=== PATIENT | female | born 1955 | race African-American/Black ===

== ENCOUNTER 2024-11-23 22:47 | Inpatient (IN) | payer MEDICAID ==
[~2024-11-23] VITALS: Ht 165.1 cm; Wt 56.9 kg
[2024-11-24] VITALS (11 sets, daily range): BP systolic 97–134; BP diastolic 47–68; PULSE 41–63; RESP 10–20; TEMP 36.5–36.6404; O2SAT 91–100
[2024-11-24 00:51] LABS: BASOPHILS % 0.4 % (0.0-2.0); EOSINOPHILS % 0.3 % (0.0-5.0); HEMATOCRIT. 25.5 % (36.0-48.0); HEMOGLOBIN. 8.2 g/dL (12.0-16.0); LYMPHOCYTES % 13.5 % (20.0-50.0); MEAN PLATELET VOLUME 10.5 fl (7.4-10.4); MONOCYTES % 4.1 % (2.0-8.0); NEUTROPHILS % 81.7 % (40.0-76.0); PLATELET 231 x1000/uL (130-400); RED BLOOD CELL COUNT 2.64 mill/uL (4.2-5.4); RED CELL DISTRIBUTION WIDTH 18.8 % (11.6-14.6)
[2024-11-24 00:59] LABS: INR 1.0
[2024-11-24 01:01] LABS: CREATININE 0.8 mg/dL (0.6-1.0); ETHANOL BLOOD < 10 mg/dL (<10); TROPONIN I HIGH SENSITIVITY 6 ng/L (3.0-34); UREA NITROGEN BLOOD 65 mg/dL (9-23)
[2024-11-24 01:02] LABS: ASPARTATE AMINOTRANSFERASE 115 IU/L (<34); BILIRUBIN DIRECT 0.1 mg/dL (<=3.0)
[2024-11-24 01:03] LABS: BILIRUBIN TOTAL 0.3 mg/dL (0.1-1.0); PROTEIN TOTAL 4.3 g/dL (6.0-8.3)
[2024-11-24] MEDS: PIPERACILLIN/TAZO 3.375G/50ML 50 ML IV SCH (04:24)
[2024-11-24] MEDS: SODIUM CHLORIDE 0.9% 1,000 ML IV SCH (04:25)
[2024-11-24] MEDS: SODIUM CHLORIDE 0.9% 500 ML IV ONE (08:15)
[2024-11-24] MEDS ORDERED: MAGNESIUM/ALUMINUM HYDROXIDE/SIMETHICONE 30ML UDC PO PRN (09:30)
[2024-11-24] MEDS ORDERED: NALOXONE HCL 0.4MG/ML VIAL IV PRN (09:30)
[2024-11-24] MEDS ORDERED: ZOLPIDEM TARTRATE 5MG TABLET PO PRN (09:30)
[2024-11-24] MEDS ORDERED: HYDROCODONE/ACETAMINOPHEN 5/325MG TABLET PO PRN (09:30)
[2024-11-24] MEDS ORDERED: CLONIDINE 0.1MG TABLET PO PRN (09:30)
[2024-11-24] MEDS ORDERED: MORPHINE SULFATE 2 MG/ML INJ (NOT FOR IM USE) IV PRN (09:30)
[2024-11-24] MEDS ORDERED: ONDANSETRON HCL 4MG/2ML INJ IV PRN (09:30)
[2024-11-24] MEDS: DEXT 5%/0.45% NACL 1000ML 1,000 ML IV SCH (10:05)
[2024-11-24] MEDS: ENOXAPARIN 40MG/0.4ML SYR SUBCUT SCH (10:05)
[2024-11-24 12:37] LABS: BASOPHILS % 0.3 % (0.0-2.0); EOSINOPHILS % 0.2 % (0.0-5.0); HEMATOCRIT. 27.0 % (36.0-48.0); HEMOGLOBIN. 8.5 g/dL (12.0-16.0); LYMPHOCYTES % 9.2 % (20.0-50.0); MEAN PLATELET VOLUME 10.5 fl (7.4-10.4); MONOCYTES % 4.6 % (2.0-8.0); NEUTROPHILS % 85.7 % (40.0-76.0); PLATELET 181 x1000/uL (130-400); RED BLOOD CELL COUNT 2.74 mill/uL (4.2-5.4); RED CELL DISTRIBUTION WIDTH 18.9 % (11.6-14.6)
[2024-11-24 12:56] LABS: CREATININE 0.7 mg/dL (0.6-1.0)
[2024-11-24 12:57] LABS: UREA NITROGEN BLOOD 57 mg/dL (9-23)
[2024-11-24 12:58] LABS: ASPARTATE AMINOTRANSFERASE 74 IU/L (<34)
[2024-11-24 12:59] LABS: BILIRUBIN TOTAL 0.5 mg/dL (0.1-1.0); PROTEIN TOTAL 4.0 g/dL (6.0-8.3)
[2024-11-24 14:46] LABS: TROPONIN I HIGH SENSITIVITY 5 ng/L (3.0-34)
[2024-11-24] MEDS: POTASSIUM CHLORIDE 20MEQ TABLET SR PO NR (15:10)
[2024-11-24 16:18] LABS: GLUCOSE URINE NEGATIVE (NEGATIVE); KETONES URINE NEGATIVE (NEGATIVE); LEUKOCYTE ESTERASE URINE 1+ (NEGATIVE); NITRITE URINE NEGATIVE (NEGATIVE); OCCULT BLOOD URINE NEGATIVE (NEGATIVE); PH URINE 5.0 (4.5-8.0); PROTEIN URINE TRACE (NEGATIVE); SPECIFIC GRAVITY URINE 1.017 (1.005-1.030); UROBILINOGEN URINE 0.2 E.U./dL (0.2-1.0)
[2024-11-24 16:43] LABS: CLARITY URINE HAZY (CLEAR); COLOR URINE YELLOW (YELLOW)
[2024-11-24 16:44] LABS: BACTERIA URINE TRACE; RBC URINE NONE SEEN /hpf (0-2); SQUAMOUS EPITHELIAL CELL URINE RARE /lpf (RARE/1+); YEAST URINE 2+
[2024-11-24 16:45] LABS: MUCUS URINE TRACE /lpf (< = 2+)
[2024-11-24 17:11] LABS: *AMPHETAMINES SCREEN URINE NEGATIVE (NEGATIVE); *BARBITURATES SCREEN URINE NEGATIVE (NEGATIVE); *BENZODIAZEPINES SCREEN URINE NEGATIVE (NEGATIVE); *COCAINE SCREEN URINE NEGATIVE (NEGATIVE); CANNABINOID URINE SCREEN NEGATIVE (NEGATIVE); ECSTASY MDMA SCREEN URINE NEGATIVE (NEGATIVE); METHADONE URINE SCREEN NEGATIVE (NEGATIVE); OPIATES URINE SCREEN PRESUMPTIVE POSITIVE (NEGATIVE); PHENCYCLIDINE URINE SCREEN NEGATIVE (NEGATIVE)
[2024-11-24 23:56] LABS: TROPONIN I HIGH SENSITIVITY 4 ng/L (3.0-34)
[2024-11-25] VITALS (9 sets, daily range): BP systolic 99–117; BP diastolic 44–86; PULSE 47–60; RESP 13–17; TEMP 35.8–36.7; O2SAT 84–100
[2024-11-25] MEDS: VANCOMYCIN 1GM/200ML PMX (BAXTER) IV SCH (01:35)
[2024-11-25 08:25] LABS: CREATININE 0.7 mg/dL (0.6-1.0); TRIGLYCERIDE 51 mg/dL (0-150); UREA NITROGEN BLOOD 44 mg/dL (9-23)
[2024-11-25 08:26] LABS: LDL CHOLESTEROL 27 mg/dL (5-100)
[2024-11-25] MEDS: PANTOPRAZOLE SODIUM 40 MG/VIAL IV SCH (08:56)
[2024-11-25] MEDS: ENOXAPARIN 30MG/0.3ML SYR SUBCUT SCH (08:56)
[2024-11-25 13:13] LABS: BASOPHILS % 0.5 % (0.0-2.0); EOSINOPHILS % 0.4 % (0.0-5.0); HEMATOCRIT. 26.7 % (36.0-48.0); HEMOGLOBIN. 8.3 g/dL (12.0-16.0); LYMPHOCYTES % 9.3 % (20.0-50.0); MEAN PLATELET VOLUME 10.8 fl (7.4-10.4); MONOCYTES % 8.6 % (2.0-8.0); NEUTROPHILS % 81.2 % (40.0-76.0); PLATELET 182 x1000/uL (130-400); RED BLOOD CELL COUNT 2.69 mill/uL (4.2-5.4); RED CELL DISTRIBUTION WIDTH 19.0 % (11.6-14.6)
[2024-11-25] MEDS: GUAIFENESIN 200MG/10ML SUGAR FREE UDC PO SCH (14:30)
[2024-11-25 18:55] LABS: BG BASE EXCESS 4.8 mmol/L (-2.0-3.0); BG CARBOXYHEMOGLOBIN 0.6 % (0.5-1.5); BG DEOXYHEMOGLOBIN 0.8 % (0.0-5.0); BG FLOW(L/min) 2.00 L/min; BG FRACTION INSPIRED OXYGEN 28; BG HCO3 ACT 26.7 mmol/L (21.0-28.0); BG METHEMOGLOBIN 0.3 % (0.5-1.5); BG OXYGEN SATURATION 99.2 % (94.0-98.0); BG OXYHEMOGLOBIN 98.3 % (94.0-98.0); BG PCO2 29.6 mmHg (32.0-45.0); BG PH 7.573 (7.350-7.450); BG PO2 158.6 mmHg (83.0-108.0); BG SAMPLE SITE RIGHT RADIAL; BG TOTAL HEMOGLOBIN 8.9 g/dL (12.0-16.0); BG VENT MODE NASAL CANNULA
[2024-11-25] MEDS: IPRATROPIUM/ALBUTEROL 0.5-3(2.5)MG/3ML NEB HHN SCH (20:34)
[2024-11-25] MEDS: VANCOMYCIN 500MG/100ML IV SCH (21:41)
[2024-11-26] VITALS (18 sets, daily range): BP systolic 85–123; BP diastolic 45–88; PULSE 48–111; RESP 15–26; TEMP 35–36.4; O2SAT 95–100
[2024-11-26] MEDS: ACETYLCYSTEINE 200MG/ML 20% VIAL 4ML INH SCH (00:51)
[2024-11-26] MEDS: SODIUM CHLORIDE 3% FOR INH 4ML NEB INH SCH (00:52)
[2024-11-26 08:10] LABS: CREATININE 0.6 mg/dL (0.6-1.0); UREA NITROGEN BLOOD 36 mg/dL (9-23)
[2024-11-26] MEDS: KCL 20MEQ/100ML PREMIX 100 ML IV SCH (09:08)
[2024-11-26 09:10] LABS: HEMATOCRIT. 24.1 % (36.0-48.0); HEMOGLOBIN. 7.8 g/dL (12.0-16.0); MEAN PLATELET VOLUME 11.3 fl (7.4-10.4); PLATELET 171 x1000/uL (130-400); RED BLOOD CELL COUNT 2.54 mill/uL (4.2-5.4); RED CELL DISTRIBUTION WIDTH 18.6 % (11.6-14.6)
[2024-11-26] MEDS: POTASSIUM CHLORIDE 20MEQ/PACKET GT SCH (14:51)
[2024-11-26] MEDS: LINEZOLID 600 MG PREMIX 300 ML IV SCH (16:02)
[2024-11-26 19:12] LABS: BAND% 13.0 % (1.0-6.0); LYMPHOCYTES % MANUAL 3.0 % (20.0-60.0); MONOCYTES % MANUAL 1.0 % (2.0-8.0); NEUTROPHILS % MANUAL 83.0 % (45.0-75.0); PLATELET ESTIMATE NORMAL
[2024-11-26] MEDS ORDERED: VANCOMYCIN 750MG/150ML (BAXTER) IV SCH (21:00)
[2024-11-27] VITALS (10 sets, daily range): BP systolic 88–128; BP diastolic 72–88; PULSE 80–110; RESP 20–32; TEMP 36.5–36.6; O2SAT 82–99
[2024-11-27] MEDS: DEXT 5% WATER + KCL 20MEQ/L 1,000 ML IV SCH (09:02)
[2024-11-27 10:18] LABS: BASOPHILS % 0.3 % (0.0-2.0); EOSINOPHILS % 1.2 % (0.0-5.0); HEMATOCRIT. 24.1 % (36.0-48.0); HEMOGLOBIN. 7.7 g/dL (12.0-16.0); LYMPHOCYTES % 7.3 % (20.0-50.0); MEAN PLATELET VOLUME 10.9 fl (7.4-10.4); MONOCYTES % 3.3 % (2.0-8.0); NEUTROPHILS % 87.9 % (40.0-76.0); PLATELET 176 x1000/uL (130-400); RED BLOOD CELL COUNT 2.52 mill/uL (4.2-5.4); RED CELL DISTRIBUTION WIDTH 18.8 % (11.6-14.6)
[2024-11-27] MEDS ORDERED: LIDOCAINE HCL 1% 10 MG/ML 10ML VIAL ONE (10:42)
[2024-11-27 11:00] LABS: CREATININE 0.5 mg/dL (0.6-1.0); UREA NITROGEN BLOOD 24 mg/dL (9-23)
[2024-11-27] MEDS ORDERED: SODIUM BICARBONATE 4.2% 2.5MEQ/5ML VIAL IV ONE (12:14)
[2024-11-27 13:22] LABS: BODY FLUID WBC 172 /cu mm (0-200)
[2024-11-27 13:23] LABS: BODY FLUID RBC 36 /cu mm (0-2000)
[2024-11-27 13:24] LABS: PROTEIN BODY FLUID < 2.0 gm/dL
[2024-11-27 13:49] LABS: BODY FLUID MONOCYTES 40 %
[2024-11-28] VITALS (20 sets, daily range): BP systolic 79–143; BP diastolic 47–94; PULSE 78–121; RESP 13–24; TEMP 35.9–36.7; O2SAT 99–100
[2024-11-28 07:37] LABS: CREATININE 0.6 mg/dL (0.6-1.0); UREA NITROGEN BLOOD 24 mg/dL (9-23)
[2024-11-28 07:41] LABS: BASOPHILS % 0.6 % (0.0-2.0); EOSINOPHILS % 3.0 % (0.0-5.0); HEMATOCRIT. 21.6 % (36.0-48.0); LYMPHOCYTES % 12.6 % (20.0-50.0); MEAN PLATELET VOLUME 11.0 fl (7.4-10.4); MONOCYTES % 7.7 % (2.0-8.0); NEUTROPHILS % 76.1 % (40.0-76.0); PLATELET 165 x1000/uL (130-400); RED BLOOD CELL COUNT 2.28 mill/uL (4.2-5.4); RED CELL DISTRIBUTION WIDTH 18.5 % (11.6-14.6)
[2024-11-28 07:56] LABS: PHOSPHORUS 0.9 mg/dL (2.5-4.9)
[2024-11-28 09:59] LABS: HEMOGLOBIN. 7.0 g/dL (12.0-16.0)
[2024-11-28] MEDS: POTASSIUM PHOSPHATE 10 MMOL in DEXT 5% WATER 246.6667 ML IV NR (16:56)
[2024-11-28] MEDS: SODIUM HYPOCHLORITE 0.125% 473ML SOLUTION TOP PRN (16:58)
[2024-11-28 18:24] LABS: LACTATE DEHYDROGENASE 468 IU/L (120-246)
[2024-11-29] VITALS (16 sets, daily range): BP systolic 90–138; BP diastolic 45–81; PULSE 78–100; RESP 15–25; TEMP 35.8–36.4; O2SAT 99–100
[2024-11-29 06:03] LABS: CREATININE 0.6 mg/dL (0.6-1.0)
[2024-11-29 06:04] LABS: UREA NITROGEN BLOOD 21 mg/dL (9-23)
[2024-11-29 06:06] LABS: PHOSPHORUS 1.3 mg/dL (2.5-4.9)
[2024-11-29 06:56] LABS: BASOPHILS % 0.6 % (0.0-2.0); EOSINOPHILS % 4.3 % (0.0-5.0); HEMATOCRIT. 27.6 % (36.0-48.0); LYMPHOCYTES % 12.4 % (20.0-50.0); MEAN PLATELET VOLUME 11.0 fl (7.4-10.4); MONOCYTES % 10.2 % (2.0-8.0); NEUTROPHILS % 72.5 % (40.0-76.0); PLATELET 178 x1000/uL (130-400); RED BLOOD CELL COUNT 2.98 mill/uL (4.2-5.4); RED CELL DISTRIBUTION WIDTH 18.0 % (11.6-14.6)
[2024-11-29 06:59] LABS: HEMOGLOBIN. 9.0 g/dL (12.0-16.0)
[2024-11-29] MEDS: POTASSIUM PHOSPHATE 15 MMOL in DEXT 5% WATER 245 ML IV SCH (12:56)
[2024-11-30] VITALS (7 sets, daily range): BP systolic 99–137; BP diastolic 56–83; PULSE 67–96; RESP 18–22; TEMP 36.4–37.1; O2SAT 97–100
[2024-12-01] VITALS (7 sets, daily range): BP systolic 93–118; BP diastolic 41–70; PULSE 67–98; RESP 18–20; TEMP 36.2–36.9; O2SAT 97–100
[2024-12-01] MEDS: LINEZOLID 600MG TABLET GT SCH (18:14)
[2024-12-02] VITALS: BP 128/77; PULSE 87; RESP 19; TEMP 36.2; O2SAT 100
[2024-12-02 04:00] VITALS: BP 103/51; PULSE 81; RESP 18; TEMP 36.3; O2SAT 95
[2024-12-02 08:00] VITALS: BP 140/68; PULSE 97; RESP 18; TEMP 36.6; O2SAT 97
[2024-12-02 09:40] LABS: BASOPHILS % 0.3 % (0.0-2.0); EOSINOPHILS % 3.4 % (0.0-5.0); HEMATOCRIT. 30.7 % (36.0-48.0); HEMOGLOBIN. 10.0 g/dL (12.0-16.0); LYMPHOCYTES % 16.9 % (20.0-50.0); MEAN PLATELET VOLUME 9.7 fl (7.4-10.4); MONOCYTES % 7.4 % (2.0-8.0); NEUTROPHILS % 72.0 % (40.0-76.0); PLATELET 219 x1000/uL (130-400); RED BLOOD CELL COUNT 3.25 mill/uL (4.2-5.4); RED CELL DISTRIBUTION WIDTH 17.7 % (11.6-14.6)
[2024-12-02 10:08] LABS: CREATININE 0.5 mg/dL (0.6-1.0); UREA NITROGEN BLOOD 17 mg/dL (9-23)
[2024-12-02 12:00] VITALS: BP 119/68; PULSE 92; RESP 18; TEMP 36.6; O2SAT 98
[2024-12-02 16:00] VITALS: BP 162/49; PULSE 88; RESP 18; TEMP 36.5; O2SAT 98
[2024-12-02 20:00] VITALS: BP 114/54; PULSE 85; RESP 20; TEMP 36.4; O2SAT 93
[2024-12-03] VITALS: BP 105/60; PULSE 87; RESP 20; TEMP 36.3; O2SAT 96
[2024-12-03 04:00] VITALS: BP 112/50; PULSE 86; RESP 20; TEMP 36.1; O2SAT 98
[2024-12-03 07:17] LABS: CREATININE 0.5 mg/dL (0.6-1.0); UREA NITROGEN BLOOD 17 mg/dL (9-23)
[2024-12-03 07:34] LABS: BASOPHILS % 0.5 % (0.0-2.0); EOSINOPHILS % 4.1 % (0.0-5.0); HEMATOCRIT. 29.4 % (36.0-48.0); HEMOGLOBIN. 9.8 g/dL (12.0-16.0); LYMPHOCYTES % 18.6 % (20.0-50.0); MEAN PLATELET VOLUME 9.5 fl (7.4-10.4); MONOCYTES % 9.6 % (2.0-8.0); NEUTROPHILS % 67.2 % (40.0-76.0); PLATELET 235 x1000/uL (130-400); RED BLOOD CELL COUNT 3.15 mill/uL (4.2-5.4); RED CELL DISTRIBUTION WIDTH 17.4 % (11.6-14.6)
[2024-12-03 08:00] VITALS: BP 140/68; PULSE 60; RESP 19; TEMP 36.4; O2SAT 100
[2024-12-03 12:00] VITALS: BP 148/76; PULSE 92; RESP 18; TEMP 36.5; O2SAT 97
[2024-12-03 16:00] VITALS: BP 141/69; PULSE 77; RESP 17; TEMP 36.6; O2SAT 96
[2024-12-03 20:00] VITALS: BP 121/82; PULSE 84; RESP 17; TEMP 36.5; O2SAT 99
[2024-12-04] VITALS: BP 138/65; PULSE 95; RESP 18; TEMP 36.6; O2SAT 99
[2024-12-04 04:00] VITALS: BP 147/66; PULSE 94; RESP 17; TEMP 36.6; O2SAT 100
[2024-12-04 08:00] VITALS: BP 157/84; PULSE 100; RESP 19; TEMP 36.6; O2SAT 97
[2024-12-04 12:00] VITALS: BP 147/62; PULSE 90; RESP 17; TEMP 35.1; O2SAT 97
[2024-12-04 16:00] VITALS: BP 158/49; PULSE 91; RESP 17; TEMP 36.6; O2SAT 97
[2024-12-04 20:00] VITALS: BP 124/60; PULSE 94; RESP 18; TEMP 36.6; O2SAT 100
[2024-12-05] VITALS: BP 136/60; PULSE 85; RESP 17; TEMP 36.7; O2SAT 98
[2024-12-05 04:00] VITALS: BP 130/70; PULSE 100; RESP 17; TEMP 36.6; O2SAT 97
[2024-12-05 08:00] VITALS: BP 130/48; PULSE 87; RESP 16; TEMP 36.3; O2SAT 97
[2024-12-05 12:00] VITALS: BP 122/54; PULSE 87; RESP 16; TEMP 36.4; O2SAT 96
[2024-12-05 16:00] VITALS: BP 137/62; PULSE 91; RESP 17; TEMP 36.3; O2SAT 97
[2024-12-05 20:00] VITALS: BP 132/72; PULSE 91; RESP 17; TEMP 36.6; O2SAT 97
[2024-12-06] VITALS: BP 100/70; PULSE 108; RESP 18; TEMP 36.8; O2SAT 96
[2024-12-06 04:00] VITALS: BP 123/66; PULSE 85; RESP 19; TEMP 36.5; O2SAT 97
[2024-12-06 08:00] VITALS: BP 124/66; PULSE 91; RESP 18; TEMP 36.2; O2SAT 97
[2024-12-06 12:00] VITALS: BP 131/70; PULSE 90; RESP 18; TEMP 36.2; O2SAT 98
[2024-12-06 16:00] VITALS: BP 133/74; PULSE 92; RESP 18; TEMP 36.1; O2SAT 97
[2024-12-06 20:00] VITALS: BP 146/67; PULSE 94; RESP 20; TEMP 36.4; O2SAT 99
[2024-12-07] VITALS (7 sets, daily range): BP systolic 110–144; BP diastolic 63–81; PULSE 85–111; RESP 16–22; TEMP 36.3–36.6; O2SAT 98–100
[2024-12-08] VITALS: BP 122/70; PULSE 71; RESP 18; TEMP 36.7; O2SAT 100
[2024-12-08 04:00] VITALS: BP 138/76; PULSE 85; RESP 16; TEMP 36.5; O2SAT 95
[2024-12-08 08:00] VITALS: BP 132/87; PULSE 79; RESP 14; TEMP 36.1; O2SAT 99
[2024-12-08 12:00] VITALS: BP 161/67; PULSE 80; RESP 14; TEMP 36.2; O2SAT 98
[2024-12-08 16:00] VITALS: BP 120/80; PULSE 91; RESP 15; TEMP 36; O2SAT 100
[2024-12-08 20:00] VITALS: BP 132/80; PULSE 87; RESP 17; TEMP 36.2; O2SAT 95
[2024-12-09] VITALS: BP 134/57; PULSE 109; RESP 17; TEMP 36.2; O2SAT 97
[2024-12-09 04:00] VITALS: BP 134/71; PULSE 108; RESP 17; TEMP 36.2; O2SAT 100
[2024-12-09 08:00] VITALS: BP 110/77; PULSE 87; RESP 18; TEMP 36.3; O2SAT 95
[2024-12-09] MEDS: LANSOPRAZOLE 30MG DR CAPSULE GT SCH (09:30)
[2024-12-09 12:00] VITALS: BP 105/50; PULSE 96; RESP 18; TEMP 36.3; O2SAT 97
[2024-12-09 16:00] VITALS: BP 106/63; PULSE 99; RESP 18; TEMP 36.3; O2SAT 95
[2024-12-09 20:00] VITALS: BP 102/59; PULSE 79; RESP 20; TEMP 37.1; O2SAT 99
[2024-12-10] VITALS: BP 112/66; PULSE 68; RESP 19; TEMP 37; O2SAT 100
[2024-12-10 04:00] VITALS: BP 127/80; PULSE 61; RESP 16; TEMP 37.3; O2SAT 99
[2024-12-10 08:00] VITALS: BP 140/62; PULSE 104; RESP 18; TEMP 36.6; O2SAT 100
[2024-12-10 12:00] VITALS: BP 128/66; PULSE 82; RESP 18; TEMP 36.4; O2SAT 99
[2024-12-10 16:00] VITALS: BP 136/66; PULSE 126; RESP 17; TEMP 36.4; O2SAT 99
[2024-12-10 20:00] VITALS: BP 143/56; PULSE 111; RESP 18; TEMP 36.9; O2SAT 100
[2024-12-11] VITALS: BP 130/64; PULSE 137; RESP 18; TEMP 38.1; O2SAT 98
[2024-12-11 04:00] VITALS: BP 135/63; PULSE 153; RESP 18; TEMP 39.6; O2SAT 96
[2024-12-11] MEDS: ACETAMINOPHEN 325MG TABLET PO PRN (05:28)
[2024-12-11 08:00] VITALS: BP 124/70; PULSE 147; RESP 20; TEMP 36.1; O2SAT 98
[2024-12-11 12:00] VITALS: BP 104/54; PULSE 131; RESP 20; TEMP 37.2; O2SAT 98
[2024-12-11] MEDS ORDERED: ACETAMINOPHEN 650MG/20.3ML UDC PO PRN (12:00)
[2024-12-11 16:00] VITALS: BP 102/48; PULSE 120; RESP 18; TEMP 37.7; O2SAT 97
[2024-12-11 20:00] VITALS: BP 120/68; PULSE 111; RESP 17; TEMP 36.9; O2SAT 98
[2024-12-12] VITALS: BP 109/73; PULSE 108; RESP 18; TEMP 37.4; O2SAT 100
[2024-12-12 04:00] VITALS: BP 149/66; PULSE 111; RESP 19; TEMP 37.7; O2SAT 99
[2024-12-12 08:00] VITALS: BP 111/72; PULSE 124; RESP 17; TEMP 37.1; O2SAT 100
[2024-12-12 12:00] VITALS: BP 108/51; PULSE 109; RESP 18; TEMP 37.2; O2SAT 98
[2024-12-12 16:00] VITALS: BP 137/57; PULSE 124; RESP 17; TEMP 37.2; O2SAT 100
[2024-12-12 20:00] VITALS: BP 119/56; PULSE 111; RESP 18; TEMP 37.1; O2SAT 100
[2024-12-12] MEDS: HYDROCODONE/ACETAMINOPHEN 5/325MG TABLET PO PRN (23:35)
[2024-12-13] VITALS (7 sets, daily range): BP systolic 122–135; BP diastolic 44–76; PULSE 94–120; RESP 17–19; TEMP 36.6–37.3; O2SAT 96–100
[2024-12-13] MEDS: METOPROLOL TARTRATE 25MG TABLET PO SCH (08:38)
[2024-12-14] VITALS: BP 128/56; PULSE 110; RESP 18; TEMP 36.7; O2SAT 97
[2024-12-14 04:00] VITALS: BP 138/60; PULSE 114; RESP 18; TEMP 37.3; O2SAT 95
[2024-12-14 08:00] VITALS: BP 140/52; PULSE 103; RESP 18; TEMP 36.7; O2SAT 99
[2024-12-14 11:50] VITALS: BP 125/61; PULSE 125; RESP 19; TEMP 36.7; O2SAT 95
[2024-12-14 16:00] VITALS: BP 119/43; PULSE 101; RESP 18; TEMP 36.4; O2SAT 100
[2024-12-14 18:40] LABS: CREATININE 0.4 mg/dL (0.6-1.0)
[2024-12-14 18:41] LABS: UREA NITROGEN BLOOD 26 mg/dL (9-23)
[2024-12-14 18:42] LABS: HEMATOCRIT. 24.9 % (36.0-48.0); HEMOGLOBIN. 7.9 g/dL (12.0-16.0); MEAN PLATELET VOLUME 9.0 fl (7.4-10.4); PLATELET 100 x1000/uL (130-400); RED BLOOD CELL COUNT 2.69 mill/uL (4.2-5.4); RED CELL DISTRIBUTION WIDTH 16.9 % (11.6-14.6)
[2024-12-14 19:14] LABS: LYMPHOCYTES % MANUAL 13.0 % (20.0-60.0); MONOCYTES % MANUAL 9.0 % (2.0-8.0); NEUTROPHILS % MANUAL 78.0 % (45.0-75.0); PLATELET ESTIMATE DECREASED
[2024-12-14 20:00] VITALS: BP 130/72; PULSE 114; RESP 18; TEMP 36.6; O2SAT 100
[2024-12-15] VITALS (7 sets, daily range): BP systolic 110–141; BP diastolic 56–72; PULSE 95–119; RESP 18–20; TEMP 36.6–37.2; O2SAT 97–100
[2024-12-16] VITALS: BP 133/60; PULSE 97; RESP 18; TEMP 36.6; O2SAT 97
[2024-12-16 04:00] VITALS: BP 127/63; PULSE 116; RESP 20; TEMP 36.2; O2SAT 97
[2024-12-16 08:00] VITALS: BP 126/69; PULSE 101; RESP 20; TEMP 37.1; O2SAT 97
[2024-12-16] MEDS ORDERED: METO25TA6 PO (11:56)
[2024-12-16 12:00] VITALS: BP 135/65; PULSE 116; RESP 23; TEMP 37.2; O2SAT 98
[2024-12-16 14:56] VITALS: BP 126/69; PULSE 101; RESP 20; TEMP 98.9
[2024-12-16 16:00] VITALS: BP 133/68; PULSE 105; RESP 20; TEMP 36.7; O2SAT 97
== END 2024-12-16 16:10 | disposition hospice, home (50) | DRG 710 ==
LOC: ER 22:47 → 5EST 11-24 02:02 → EDBEDREQ 11-24 02:08 → EDBEDREQTM 11-24 02:08 → EDBEDREQDT 11-24 02:08 → EDBEDREQSVC 11-24 02:08 → ENRESERV 11-24 02:23 → 8WST 11-30 01:06 → 6EST 12-04 12:38
PROVIDERS: ADMIT Internal Medicine; ATTEND Internal Medicine
PROC: 0W9B3ZZ Drainage of Left Pleural Cavity, Percutaneous Approach (ICD-10-PCS; 2024-11-27)
PROC: 30233N1 Transfusion of Nonautologous Red Blood Cells into Peripheral Vein, Percutaneous Approach (ICD-10-PCS; 2024-11-28)
PROC: 0LBJ0ZZ Excision of Right Hip Tendon, Open Approach (ICD-10-PCS; principal; 2024-12-02)
DX: A40.9 Streptococcal sepsis, unspecified (principal); J96.01 Acute respiratory failure with hypoxia; G93.41 Metabolic encephalopathy; E43 Unspecified severe protein-calorie malnutrition; L89.123 Pressure ulcer of left upper back, stage 3; L89.113 Pressure ulcer of right upper back, stage 3; N17.9 Acute kidney failure, unspecified; L89.214 Pressure ulcer of right hip, stage 4; E86.1 Hypovolemia; L89.153 Pressure ulcer of sacral region, stage 3; E87.0 Hyperosmolality and hypernatremia; E83.39 Other disorders of phosphorus metabolism; E87.3 Alkalosis; D64.9 Anemia, unspecified; E11.9 Type 2 diabetes mellitus without complications; E87.6 Hypokalemia; R62.7 Adult failure to thrive; N39.0 Urinary tract infection, site not specified; I10 Essential (primary) hypertension; R78.81 Bacteremia; B95.8 Unspecified staphylococcus as the cause of diseases classified elsewhere; Z68.20 Body mass index [BMI] 20.0-20.9, adult; E83.51 Hypocalcemia; F03.90 Unspecified dementia, unspecified severity, without behavioral disturbance, psychotic disturbance, mood disturbance, and anxiety; J90 Pleural effusion, not elsewhere classified; R65.20 Severe sepsis without septic shock; Z16.21 Resistance to vancomycin; Z74.01 Bed confinement status
CPT/HCPCS: 32555; 36415; 36600; 71045; 76604; 80048; 80053; 80061; 80076; 80202; 80305; 80320; 81003; 82375; 82805; 83036; 83605; 83615; 83735; 83880; 84100; 84145; 84443; 84484; 85014; 85018; 85025; 86850; 86900; 86920; 87070; 87077; 87106; 87186; 88108; 88312; 92610; 93005; 93970; 94070; 94640; 94664; 94667; 97163; 99285; A4606; J1650; J2003; J2020; J2470; J2543; J3373; J3480; J3490; J7060; J7608; P9016; G0480